=== PATIENT | female | born 1975 | race Caucasian/White ===

== ENCOUNTER 2018-03-06 11:20 | Emergency (ER) | payer OTHER ==
[2018-03-06 11:33] VITALS: TEMP 98.4; BMI 54.3
[2018-03-06] MEDS ORDERED: ACETAMINOPHEN 1000 MG/100 ML VIAL (NON FORMULARY) IVPB ONE ×2 (12:21→17:21)
[2018-03-06] MEDS ORDERED: SODIUM CHLORIDE 1,000 ML IV STA ×2 (12:21→15:12)
[2018-03-06] MEDS ORDERED: ONDANSETRON 4 MG/2 ML VIAL IVPB ONE (12:21)
[2018-03-06] MEDS ORDERED: oxyCODONE HCL 5 MG TABLET ONE (12:42)
[2018-03-06] MEDS ORDERED: ONDANSETRON 4 MG/2 ML VIAL ONE (12:48)
[2018-03-06] MEDS ORDERED: ACETAMINOPHEN INJECTION 100 ML IVPB ONE ×2 (12:48→17:32)
[2018-03-06 13:02] LABS: BASO % 1.5 % (0-2.0); EOS % 1.9 % (0-4.5); HEMATOCRIT 40.4 % (32.4-45.2); HEMOGLOBIN 13.3 GM/dL (10.7-15.3); LYMPH % 21.1 % (8-40); MCH 27.4 pg (25.7-33.7); MCHC 32.9 g/dl (32.0-36.0); MEAN CELL VOLUME 83.2 fl (80-96); MEAN PLT VOLUME 8.3 fl (7.5-11.1); MONO % 4.6 % (3.8-10.2); NEUT % 70.9 % (42.8-82.8); PLATELET COUNT 314 K/MM3 (134-434); RBC 4.85 M/mm3 (3.60-5.2); RDW 13.8 % (11.6-15.6); WHITE BLOOD COUNT 7.9 K/mm3 (4.0-10.0)
--- NOTE | 2018-03-06 13:11 | PDOC ---
History of Present Illness - General Chief Complaint: Nausea/Vomiting Stated Complaint: NAUSEA/VOMITING Time Seen by Provider: 03/06/18 12:01 History Source: Patient Exam Limitations: No Limitations - History of Present Illness Initial Comments: 03/06/18 13:06 Pt is a 43yo f with PMH of HTN, RA presenting to ED with complaints of fever, nausea, vomiting and RUQ. Pt said she has been having foever for 1 week and got as high as 101. She woke up this morning, had an episode of emesis which was bilious and had a headache with pain behind her eyes. Since then she has unable to keep water down and was unable to take her bp meds this morning. She has not eaten since 2pm yesterday. RUQ pain started on , does not radiate, is worse when she lies down, gets better when she sits up. She admits to fever, nausea, vomiting, RUQ abdominal pain, diarrhea x1week. She denies chest pain, SOB, urinary symtoms, weakness, numbness, tingling. LMP: now PCP: Erci PMH: see hpi PSH: lipoma removal Meds: labetalol, traimterene, amlodipine, erin, mtx as needed Allergies: nkda Social: denies Past History - Past Medical History Allergies/Adverse Reactions: Allergies Allergy/AdvReac Type Severity Reaction Status Date / Time No Known Allergies Allergy Verified 03/06/18 11:28 Home Medications: Ambulatory Orders Amlodipine Besylate 5 mg PO DAILY 03/06/18 Labetalol HCl [Normodyne -] 200 mg PO BID 03/06/18 Triamterene/Hydrochlorothiazid [Triamterene-Hctz 37.5-25 mg Tb] 1 each PO DAILY 03/06/18 COPD: No HTN: Yes Other medical history: rheumatoid arthritis - Suicide/Smoking/Psychosocial Hx Smoking History: Never smoked Review of Systems - Review of Systems Constitutional: Yes: See HPI, Fever HEENTM: No: Eye Pain, Blurred Vision, Recent change in vision, Double Vision, Nose Congestion Respiratory: No: Cough, Shortness of Breath Cardiac (ROS): No: Chest Pain, Lightheadedness, Palpitations ABD/GI: Yes: Diarrhea, Nausea, Vomiting, Abdominal cramping (RUQ pain). No: Blood Streaked Bowels, Constipated : No: Burning, Dysuria, Hematuria Musculoskeletal: Yes: Joint Pain (from RA). No: Back Pain, Muscle Pain, Muscle Weakness, Neck Pain Neurological: Yes: Headache (retroorbital). No: Numbness, Paresthesia *Physical Exam - Vital Signs Last Vital Signs Temp Pulse Resp BP Pulse Ox 98.4 F 107 H 18 197/131 100 03/06/18 11:28 03/06/18 11:28 03/06/18 11:28 03/06/18 11:03/06/18 11:28 - Physical Exam General Appearance: Yes: Appropriately Dressed, Obese. No: Apparent Distress HEENT: positive: EOMI, CABRERA, Pharynx Normal. negative: Pharyngeal Erythema, Nasal Congestion, Sinus Tenderness Neck: positive: Trachea midline, Supple. negative: Decreased range of motion, Lymphadenopathy (R), Lymphadenopathy (L) Respiratory/Chest: positive: Lungs Clear, Normal Breath Sounds. negative: Crackles, Rales, Rhonchi, Stridor Cardiovascular: positive: Regular Rhythm, Regular Rate (HR was 79 during examination), S1, S2, Other (hyptertension) Vascular Pulses: Carotid (R): 2+, Carotid (L): 2+ Gastrointestinal/Abdominal: positive: Normal Bowel Sounds, Soft, Tenderness (RUQ ). negative: Distended, Guarding, Rebound Musculoskeletal: negative: CVA Tenderness Extremity: positive: Normal Capillary Refill Integumentary: positive: Normal Color, Dry, Warm Neurologic: positive: snaker driving horses II-XII NML intact, Fully Oriented, Alert, Normal Mood/ Affect, Normal Response, Motor Strength /5 ED Treatment Course - LABORATORY CBC & Chemistry Diagram: 03/06/18 12:50 03/06/18 12:50 - RADIOLOGY Radiology Studies Ordered: Category Date Time Status ABDOMEN US -LIMITED [US] Stat Ultrasound 03/06/18 12:50 Ordered - Medications Given in the ED: ED Medications Discontinued Medications Generic Name Dose Route Start Last Admin Trade Name Freq PRN Reason Stop Dose Admin Acetaminophen 1,000 mg 03/06/18 12:21 03/06/18 12:49 Ofirmev Injection - IVPB 03/06/18 12:22 1,000 mg ONCE ONE Administration Ondansetron HCl 4 mg 03/06/18 12:21 03/06/18 12:49 Zofran Injection IVPB 03/06/18 12:22 4 mg ONCE ONE Administration Medical Decision Making - Medical Decision Making 03/06/18 15:33 Pt is a 43yo f with PMH of HTN, RA presenting to ED with complaints of fever, nausea, bilious vomiting and RUQ. + diarrhea x1week DDx: cholecystitis, pancreatitis, appendicitis, colitis High suspicion for cholecystitis. Labs, US. -U/S negative for cholecystitis. Hemangiomas present on liver. Pt must follow up with Dr. Reyes. Will order CT abdomen to check for colitis. 03/06/18 17:37 Labs wnl. UA- 3+ blood, however pt is menstruating. Awaiting CT results. Pt complaining of headache. Will give Tylenol. Upon further questioning, pt says she normally gets migraines and vomits, however this does feels sightly different, she thinks it may have been due to the fever she had. 03/06/18 18:51 CT showed sigmoid diverticulosis. Pt reported feeling better with Tylenol. Pt was going to be d/c home. BP elevated at 170/120. Pt did not want to stay for further workup stating her bp runs high. Will give home dose of amlodipine and labetalol here in ED. *DC/Admit/Observation/Transfer Diagnosis at time of Disposition: Diverticulosis Qualifiers: Diverticulosis site: diverticulosis of large intestine Diverticulosis bleeding : diverticulosis without bleeding Qualified Code(s): K57.30 - Diverticulosis of large intestine without perforation or abscess without bleeding - Discharge Dispostion Disposition: HOME Condition at time of disposition: Stable Decision to Admit order: No - Referrals Referrals: Virginia Reyes MD [Primary Care Provider] - - Patient Instructions Printed Discharge Instructions: DI for Diarrhea and Traveler's Diarrhea -- Adult, DI for Vomiting -- Adult, DI for Headache, DI for Diverticulosis Additional Instructions: You were seen here today because you had fevers, diarrhea, headache and an episode of vomiting. We did CT scan and and Ultrasound. The ultrasound showed hemangiomas of the liver. The CT scan results are given to you showed diverticulosis. Please follow up with Dr. Reyes within the next few days to discuss your results and further workup. Please come back to the ED if: your headache gets worse, you continue to vomit, you are unable to tolerate food, you develop fever or if any new concerning symptom develops. Thank you - Post Discharge Activity
--- NOTE | 2018-03-06 13:16 | PDOC ---
Attending Attestation - Resident Resident Name: Kati Cooley - ED Attending Attestation I have performed the following: I have examined & evaluated the patient, The case was reviewed & discussed with the resident, I agree w/resident's findings & plan, Exceptions are as noted - HPI HPI: 03/06/18 13:14 43-year-old female patient history obesity, hypertension, rheumatoid arthritis, not currently on medications for rheumatoid presents with 1 week of right upper quadrant pain. Patient reports his persistent right upper quadrant pain with nausea and vomiting. Has reported intermittent fevers for the last week including a MAXIMUM TEMPERATURE of 101. Has endorse some loose stooling but denies dysuria. Patient does report some frontal tension-like headache which she thinks may be sinus in origin. However denies cough. Denies prior history of gallstones but given the persistent symptoms came to the ER for further evaluation. - Physicial Exam PE: 03/06/18 13:14 GENERAL: Awake, alert, and fully oriented, in no acute distress HEAD: No signs of trauma EYES: EOMI, sclera anicteric, conjunctiva clear ENT: Auricles normal inspection, hearing grossly normal, nares patent NECK: Normal ROM, supple ABDOMEN: Soft, No guarding, no rebound. No masses. Right upper quadrant tenderness with Lyles sign positive. EXTREMITIES: Normal range of motion, no edema. No clubbing or cyanosis. No cords, erythema, or tenderness NEUROLOGICAL: Cranial nerves II through XII grossly intact. Normal speech, normal gait SKIN: Warm, Dry, normal turgor, no rashes or lesions noted. - Medical Decision Making 03/06/18 13:15 Vital Signs Period Temp Pulse Resp BP Sys/Coronel Pulse Ox Last 24 Hr 98.4 F 107 18 197/131 100 43-year-old female patient with right upper quadrant pain. Differential includes acute cholecystitis versus pancreatitis versus communication clerk colic versus gastritis versus gastroenteritis versus colitis. We'll obtain labs, urinalysis, urine prior to tests, quadrant ultrasound and reassess. 03/06/18 15:05 CBC, BMP 03/06/18 12:50 03/06/18 12:50 CMP Sodium 140 mmol/L (136-145) 03/06/18 12:50 Potassium 3.4 mmol/L (3.5-5.1) L 03/06/18 12:50 Chloride 103 mmol/L (98-107) 03/06/18 12:50 Carbon Dioxide 30 mmol/L (21-32) 03/06/18 12:50 Anion Gap 7 MMOL/L (8-16) L 03/06/18 12:50 BUN 12 mg/dL (7-18) 03/06/18 12:50 Creatinine 0.6 mg/dL (0.55-1.02) 03/06/18 12:50 Creat Clearance w eGFR > 60 (>60) 03/06/18 12:50 Random Glucose 105 mg/dL (74-106) 03/06/18 12:50 Calcium 8.7 mg/dL (8.5-10.1) 03/06/18 12:50 Total Bilirubin 0.6 mg/dL (0.2-1.0) 03/06/18 12:50 AST 20 U/L (15-37) 03/06/18 12:50 ALT 35 U/L (12-78) 03/06/18 12:50 Alkaline Phosphatase 90 U/L (45-117) 03/06/18 12:50 Troponin I < 0.02 ng/ml (0.00-0.05) 03/06/18 12:50 Total Protein 7.8 g/dl (6.4-8.2) 03/06/18 12:50 Albumin 3.6 g/dl (3.4-5.0) 03/06/18 12:50 Lipase 73 U/L (73-393) 03/06/18 12:50 Serum , Qual Negative 03/06/18 12:50 Urine Test Results Urine Color Yellow 03/06/18 13:50 Urine Appearance Clear 03/06/18 13:50 Urine pH 8.0 (5.0-8.0) 03/06/18 13:50 Ur Specific [place]ley 1.012 (1.001-1.035) 03/06/18 13:50 Urine Protein 2+ (NEGATIVE) H 03/06/18 13:50 Urine Glucose (UA) Negative (NEGATIVE) 03/06/18 13:50 Urine Ketones Negative (NEGATIVE) 03/06/18 13:50 Urine Blood 3+ (NEGATIVE) H 03/06/18 13:50 Urine Nitrite Negative (NEGATIVE) 03/06/18 13:50 Urine Bilirubin Negative (<2.0 mg/dL) 03/06/18 13:50 Ur Leukocyte Esterase Negative (NEGATIVE) 03/06/18 13:50 Ur Epithelial Cells Rare /HPF (FEW) 03/06/18 13:50 Urine Bacteria Rare /hpf (NONE SEEN) 03/06/18 13:50 Ultrasound shows no acute cholecytitis. Does demonstrate findings of ?hemangiomas. Will inform patient and have her followup with repeat ultrasound. Will obtain CT abdomen and pelvis to r/o colitis.l 03/06/18 17:51 CT shows no acute findings. Diverticulosis. Hepatic hypodensities likely hepatic cysts. Splenic hypodensity. Will have patient follow up as an outpatient. 03/06/18 18:46 Pt's BP noted to be quite elevated. She reports missing her BP medications. States that she feels better and does not want to stay. States that it is always high. Will give her dose here and let her go home. Pt is aware that her BP is very elevated and will follow up with PMD. Heart Score/ECG Review #1 ECG reviewed & interpreted by me at: 13:30 03/06/18 13:34 NSR 66, LVH, TWI III, normal axis, normal intervals, QTC 444 msec
[2018-03-06 13:26] LABS: ALBUMIN 3.6 g/dl (3.4-5.0); ANION GAP 7 MMOL/L (8-16); BILIRUBIN,TOTAL 0.6 mg/dL (0.2-1.0); BLOOD UREA NITROGEN 12 mg/dL (7-18); CALCIUM 8.7 mg/dL (8.5-10.1); CHLORIDE 103 mmol/L (98-107); CO2 30 mmol/L (21-32); CREATININE 0.6 mg/dL (0.55-1.02); GLUCOSE,RANDOM 105 mg/dL (74-106); LIPASE 73 U/L (73-393); POTASSIUM 3.4 mmol/L (3.5-5.1); SGOT/AST 20 U/L (15-37); SGPT/ALT 35 U/L (12-78); SODIUM 140 mmol/L (136-145); TOT PROT 7.8 g/dl (6.4-8.2)
[2018-03-06 13:27] LABS: ALK PHOS 90 U/L (45-117)
[2018-03-06 14:13] LABS: URINE APPEARANCE CLEAR; URINE BILIRUBIN NEGATIVE (<2.0 mg/dL); URINE COLOR YELLOW; URINE GLUCOSE (UA) NEGATIVE (NEGATIVE); URINE KETONE NEGATIVE (NEGATIVE); URINE LEUK ESTERASE NEGATIVE (NEGATIVE); URINE NITRITE NEGATIVE (NEGATIVE); URINE UROBILINOGEN NEGATIVE mg/dL (0.2-1.0)
[2018-03-06 14:15] LABS: URINE PROTEIN 2+ (NEGATIVE)
[2018-03-06 14:30] LABS: EPI CELLS RARE /HPF (FEW); URINE BACTERIA RARE /hpf (NONE SEEN)
[2018-03-06 14:40] LABS: HCG,QUALITATIVE URINE Negative
[2018-03-06] MEDS ORDERED: amLODIPine BESYLATE 5 MG TABLET (FP) PO ONE (18:51)
[2018-03-06] MEDS ORDERED: LABETALOL HCL 200 MG TABLET (FP) PO ONE (18:51)
[2018-03-06] MEDS ORDERED: LABETALOL HCL 100 MG TABLET (FP) ONE (18:53)
[2018-03-06] MEDS ORDERED: amLODIPine BESYLATE 5 MG TABLET (FP) ONE (18:53)
[2018-03-06 19:05] VITALS: BP 171/115; PULSE 80
--- NOTE | 2018-03-07 13:24 | EKG ---
Test Reason : Blood Pressure : / mmHG Vent. Rate : 066 BPM Atrial Rate : 066 BPM P-R Int : 142 ms QRS Dur : 088 ms QT Int : 424 ms P-R-T Axes : 040 004 022 degrees QTc Int : 444 ms NORMAL SINUS RHYTHM MINIMAL VOLTAGE CRITERIA FOR LVH, MAY BE NORMAL VARIANT CANNOT RULE OUT ANTERIOR INFARCT , AGE UNDETERMINED ABNORMAL ECG WHEN COMPARED WITH ECG OF 23-OCT-2000 02:25, VENT. RATE HAS DECREASED BY [address] NO LONGER DEPRESSED IN ANTERIOR LEADS NONSPECIFIC T WAVE ABNORMALITY NO LONGER EVIDENT IN LATERAL LEADS Confirmed by SPENCER TILLMAN MD ([id number]) on 03/07/2018 1:24:18 PM Referred By: Confirmed By:SPENCER TILLMAN MD
== END 2018-03-06 19:07 | disposition home or self-care (01) ==
LOC: JER 11:20
PROC: 3E0337Z Introduction of Electrolytic and Water Balance Substance into Peripheral Vein, Percutaneous Approach (ICD-10-PCS; principal; 2018-03-06)
PROC: 3E033NZ Introduction of Analgesics, Hypnotics, Sedatives into Peripheral Vein, Percutaneous Approach (ICD-10-PCS; 2018-03-06)
PROC: 3E033GC Introduction of Other Therapeutic Substance into Peripheral Vein, Percutaneous Approach (ICD-10-PCS; 2018-03-06)
DX: K57.30 Diverticulosis of large intestine without perforation or abscess without bleeding (principal); I10 Essential (primary) hypertension; M06.9 Rheumatoid arthritis, unspecified
CPT/HCPCS: 36415; 74177-TC; 76705-TC; 80053; 81003; 81015; 83690; 84484; 84703; 85025; 93005; 93010; 99283-25; J0131; J7030